=== PATIENT | female | born 1935 | race Caucasian/White ===

== ENCOUNTER → 2016-11-11 | Outpatient (REF) | payer MEDICARE ==
[~2016-11-11] MED LIST: FOLI1TAB OR; HYDROCLOROTHIAZIDE PO; VITAMIN B COMPLE1 OR; [UNRECOGNIZED DRUG - CODE] PO; calcium PO; fish oil PO; multivitamin PO; vitamin d PO
[2016-11-13 00:07] LABS: Lyme Disease IgG/IgM Antibodie <0.91 ISR (0.00-0.90); Lyme Disease IgM Ab Quantitati <0.80 index (0.00-0.79)
== END ==
LOC: M LAB REF 12:20
PROVIDERS: ATTEND Internal Medicine
DX: M15.9 Polyosteoarthritis, unspecified (principal)

== ENCOUNTER 2017-01-30 00:10 | Inpatient (IN) | payer MEDICARE ==
[~2017-01-30] VITALS: Ht 152.4 cm; Wt 57.7 kg
[2017-01-30] MEDS ORDERED: MYRB25TA PO (00:28)
[2017-01-30] MEDS: METOPROLOL 5 MG/5 ML VIAL IV SCH ×6 (01:00→02:35)
[2017-01-30 01:18] LABS: BASO % 0.5 % (0.0-1.0); EOS # 0.1 K/mm3 (0.0-0.50); EOS % 2.4 % (0.0-3.0); LARGE UNSTAINED CELL # 0.1 K/mm3 (0.0-0.4); LARGE UNSTAINED CELL % 2.3 % (0.0-4.0); LYMPH # 0.9 K/mm3 (1.5-4.5); LYMPH % 15.7 % (24.0-44.0); MEAN CORPUSCULAR HEMOGLOBIN 33.9 pg (27.0-33.0); MEAN CORPUSCULAR HGB CONC 34.6 g/dl (32.0-36.5); MONO # 0.4 K/mm3 (0.0-0.8); MONO % 7.5 % (0.0-5.0); NEUTROPHILS # 4.1 K/mm3 (1.8-7.7); NEUTROPHILS % 71.6 % (36.0-66.0); PLATELET COUNT, AUTOMATED 111 k/mm3 (150-450); RED CELL DISTRIBUTION WIDTH 11.9 % (11.5-14.5); WHITE BLOOD COUNT 5.7 K/mm3 (4.0-10.0)
[2017-01-30 01:32] LABS: ANION GAP 6 MEQ/L (8-16); BLOOD UREA NITROGEN 18 MG/DL (7-18); CALCIUM LEVEL 8.9 MG/DL (8.8-10.2); CARBON DIOXIDE LEVEL 30 MEQ/L (21-32); CHLORIDE LEVEL 103 MEQ/L (98-107); CREATININE FOR GFR 0.61 MG/DL (0.55-1.02); GLOMERULAR FILTRATION RATE > 60.0 (>32); GLUCOSE, FASTING 119 MG/DL (83-110); POTASSIUM SERUM 3.5 MEQ/L (3.5-5.1); SODIUM LEVEL 139 MEQ/L (136-145)
[2017-01-30] MEDS ORDERED: DIGOXIN INJ 0.5 MG/2 ML AMP (J1160) IV ONE ×2 (03:00→09:00)
[2017-01-30] MEDS ORDERED: FOLI1TAB4 PO (03:16)
[2017-01-30] MEDS ORDERED: CALC1TAB30 PO (03:16)
[2017-01-30] MEDS ORDERED: TYLE650T35 PO (03:16)
[2017-01-30] MEDS ORDERED: VOLT1GEL15 TD (03:16)
[2017-01-30] MEDS ORDERED: TYLE1TAB5 PO (03:16)
[2017-01-30] MEDS ORDERED: VITMTA PO (03:16)
[2017-01-30] MEDS ORDERED: VITA500T3 PO (03:16)
[2017-01-30] MEDS ORDERED: VITA100066 PO (03:16)
[2017-01-30] MEDS ORDERED: HYDR12CA PO (03:16)
[2017-01-30] MEDS ORDERED: NS 1,000 ML IV SCH (03:27)
[2017-01-30] MEDS ORDERED: ACETAMINOPHEN 650MG ER TAB (TYLENOL ARTHRITIS) PO PRN (03:30)
[2017-01-30] MEDS ORDERED: METOPROLOL TART 50 MG TAB PO STA (03:43)
[2017-01-30 04:59] VITALS: BP 131/71
[2017-01-30 05:34] LABS: BASO % 0.7 % (0.0-1.0); EOS # 0.1 K/mm3 (0.0-0.50); EOS % 1.7 % (0.0-3.0); LARGE UNSTAINED CELL # 0.1 K/mm3 (0.0-0.4); LARGE UNSTAINED CELL % 2.1 % (0.0-4.0); LYMPH # 1.4 K/mm3 (1.5-4.5); LYMPH % 19.6 % (24.0-44.0); MEAN CORPUSCULAR HEMOGLOBIN 33.6 pg (27.0-33.0); MEAN CORPUSCULAR HGB CONC 34.1 g/dl (32.0-36.5); MEAN CORPUSCULAR VOLUME 98.6 fl (80.0-96.0); MONO # 0.4 K/mm3 (0.0-0.8); MONO % 6.7 % (0.0-5.0); NEUTROPHILS # 4.3 K/mm3 (1.8-7.7); NEUTROPHILS % 69.1 % (36.0-66.0); PLATELET COUNT, AUTOMATED 117 k/mm3 (150-450); RED CELL DISTRIBUTION WIDTH 12.4 % (11.5-14.5); WHITE BLOOD COUNT 6.2 K/mm3 (4.0-10.0)
[2017-01-30 05:56] LABS: ANION GAP 8 MEQ/L (8-16); BLOOD UREA NITROGEN 14 MG/DL (7-18); CALCIUM LEVEL 8.7 MG/DL (8.8-10.2); CARBON DIOXIDE LEVEL 28 MEQ/L (21-32); CHLORIDE LEVEL 104 MEQ/L (98-107); CREATININE FOR GFR 0.48 MG/DL (0.55-1.02); GLOMERULAR FILTRATION RATE > 60.0 (>32); GLUCOSE, FASTING 109 MG/DL (83-110); POTASSIUM SERUM 3.9 MEQ/L (3.5-5.1); SODIUM LEVEL 140 MEQ/L (136-145)
[2017-01-30] MEDS ORDERED: DIGOXIN 0.25 MG TAB PO SCH (06:00)
--- NOTE | 2017-01-30 07:54 | REP ---
Portable chest, 01:18 a.m., 01/30/2017, single AP view, patient sitting: There are no comparisons. The lung smith are clear. The cardiac size is normal. The jesusita, mediastinum, and bony thorax are unremarkable. Impression: Negative portable chest. Signed by Harjeet Lane MD 01/30/2017 07:46 A
[2017-01-30 08:00] VITALS: BP 110/74
--- NOTE | 2017-01-30 08:50 | ECGEPIP ---
Stationary ECG Study 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
[2017-01-30] MEDS ORDERED: APIXABAN 2.5 MG TAB (ELIQUIS) PO SCH (09:00)
[2017-01-30] MEDS: CYANOCOBALAMIN 500 MCG TAB PO SCH (09:14)
[2017-01-30] MEDS: VITAMIN D 1,000 INTERNATIONAL UNITS TABLET PO SCH (09:14)
[2017-01-30] MEDS: FOLIC ACID 1 MG TAB PO SCH (09:14)
[2017-01-30 09:55] VITALS: BP 127/60
[2017-01-30 11:51] LABS: MAGNESIUM LEVEL 2.3 MG/DL (1.8-2.4)
[2017-01-30 12:00] VITALS: BP 132/60
--- NOTE | 2017-01-30 12:04 | IPN ---
DATE: 01/30/2017 An 81-year-old female seen at bedside, admitted for atrial fibrillation, rapid ventricular response (RVR) last evening. Dr. Mills was consulted. Was started on some digoxin. She does continue to be in rapid ventricular rate with what appears to be a ventricular rate in the 120s on telemetry. She denies any chest pain, palpitations. No nausea, vomiting and is otherwise comfortable. Temperature is 97.6, ventricular rate again is in the 120s on telemetry, respiratory rate 16, blood pressure (BP) 110/74, SpO2 97% on room air. GENERAL: The patient appears to be in no acute distress. Is alert and oriented. HEENT: Unremarkable. LUNGS: Clear. HEART: Regular rate and rhythm. ABDOMEN: Soft. EXTREMITIES: No edema. No calf tenderness. LABORATORY DATA: White count is 6.2, hemoglobin 12.6, platelets are 117,000. Sodium is 140, potassium 3.9, chloride 104, bicarbonate 28, anion gap 8, BUN is 14, creatinine 0.48 ASSESSMENT AND PLAN: There is no history and physical available for me this morning in the electronic medical record (EMR). 1. Atrial fibrillation with rapid ventricular response (RVR). The patient was started on metoprolol last evening as well as digoxin. She does continue to run a bit rapid, and she is being loaded with digoxin. I am going to go ahead and give her a one-time dose of 0.125 mg of digoxin intravenous (IV) and will plan on checking a dig level in the morning. Will continue with Eliquis 2.5 mg twice a day, which was started due to her CHADSVASC risk. 2. Vitamin D deficiency. Continue supplementation. 3. Folic acid. Continue supplementation. 4. 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 DISPOSITION: Anticipate home discharge in the next 24-48 hours but appreciate cardiology's input in the meantime. AMILCAR
--- NOTE | 2017-01-30 13:27 | HPE ---
DATE OF ADMISSION: 01/30/2017 Most of the history is obtained from the patient, who is a good historian. CHIEF COMPLAINT: Pain to the jaw radiating to the chest and the arms. HISTORY OF PRESENT ILLNESS: This is an 81-year-old female who was recently admitted with chest pain, had full workup done including a stress test as an outpatient, which was essentially normal. The patient now returns stating that at approximately 10:30 p.m. while asleep she was woken up by pain in her jaw, which later radiated down her neck and into her arms. The patient thereafter went to the emergency room. Here in the emergency room, the patient was diagnosed with rapid atrial fibrillation at a rate of 150. The patient denies any significant shortness of breath or any nausea, vomiting, or diaphoresis accompanying the episode and states that once the rate was decreased that her chest pressure improved. The patient recently underwent a stress test by her cadastral engineer, Dr. Saenz, which apparently was negative. She states she also had an echocardiogram done by him as well, and thinks that result was normal. PAST MEDICAL HISTORY: Significant for ITP. CURRENT MEDICATIONS: Include: - Myrbetriq - hydrochlorothiazide 25 mg once daily - multivitamin one tablet daily - Tylenol as needed ALLERGIES: No known drug allergies. SOCIAL HISTORY: The patient denies any tobacco, ethanol or drug use. PREVIOUS SURGERIES: Include: 1. Total hysterectomy. 2. Breast lumpectomy. 3. Eye surgery. FAMILY HISTORY: Noncontributory for any coronary artery disease or diabetes. REVIEW OF SYSTEMS: Other than the above mentioned, denies any other cardiopulmonary, digestive, endocrine, hematological, psychiatric, neurological, musculoskeletal, or dermatological disease. PHYSICAL EXAMINATION: Pulse on arrival to the emergency room was 143 with a blood pressure of 116/67. Since then, the pulse has decreased and is mostly in the 120s with a heart rate of 126 with a blood pressure of 114/56. Breathing is 16, afebrile. GENERAL APPEARANCE: Thin 81-year-old white female currently lying in bed in no apparent distress. PSYCHIATRIC EXAM: Alert and oriented times two with normal affect. SKIN EXAM: Intact, warm, no obvious rashes noted. EYE EXAM: Pupils are equally round and reactive to light without icterus. OROPHARYNGEAL EXAM: No pharyngeal erythema, dentition in good condition. NECK EXAM: No thyromegaly, trachea midline, neck is supple. LYMPHATICS EXAM: No cervical or axillary lymphadenopathy. CARDIAC EXAM: Irregular rate and rhythm. No rubs, murmurs or gallops. No jugular venous distention (JVD). No edema. RESPIRATORY EXAM: Clear to auscultation bilaterally with good effort. ABDOMINAL EXAM: Nondistended, nontender. No masses palpated. PERIPHERAL EXAM: No clubbing, cyanosis, or edema noted. LABORATORIES: The patient's white cell count is 6000, hematocrit 37, platelet count of 111 with an MCV of 98, RDW 12. Chemistry shows a sodium 139, potassium of 3.5, bicarbonate 30, BUN and creatinine of 18/0.6. Initial troponin is negative. CPK is 95. Calcium is normal. The patient's EKG is personally reviewed and shows atrial fibrillation at a rate of [address] changes. Chest x-ray is also personally reviewed and shows no signs of any effusions or infiltrates. ASSESSMENT: This is an 81-year-old female now presenting with atrial fibrillation and rapid ventricular response. The patient has received multiple doses of Lopressor intravenously (IV) in the emergency room, approximately six doses without any significant reduction in heart rate. Consultation was undertaken with Dr. Mills of cardiology, who recommended that the patient be loaded with digoxin at this time. We will admit the patient for further care. 1. Atrial fibrillation with rapid ventricular response: Will admit the patient to telemetry unit for further care at this time as an inpatient, echocardiogram was recently done and should be obtained from her cadastral engineer, thyroid-stimulating hormone (TSH) will be checked in the morning, cardiology consult will be obtained in the morning, at this time will just start the patient on Lopressor 50 mg by mouth twice daily and load her with digoxin with three more doses of 0.25 mg of digoxin by mouth over the next 24 hours, we will also hold her other antihypertensive hydrochlorothiazide in order to monitor blood pressure now on Lopressor, at this time will start the patient on Eliquis 2.5 mg twice daily as she is over 80 and less than 60 kg. The patient's platelet count at this time is 111 and should be monitored closely in light of her ITP. 2. Hypertension: At this time will hold hydrochlorothiazide as the patient is being started on Lopressor and monitor her blood pressure. 3. ITP: The patient's platelet count at this time is stable and she can tolerate anticoagulants, therefore will start her on Eliquis. For diet, patient will be on a regular diet and deep venous thrombosis (DVT) prophylaxis will be given with Xarelto.
[2017-01-30 16:00] VITALS: BP 135/63
[2017-01-30 20:32] VITALS: BP 147/64
--- NOTE | 2017-01-30 21:47 | CR ---
DATE OF CONSULTATION: 01/30/2017 INDICATION: Atrial fibrillation, chest pain. HISTORY OF PRESENT ILLNESS: Mrs. Beltran is actually my patient. She is a rather delightful 81-year-old female who presented to [facility] last night after she was woken up from sleep by pain that initiated in her jaw and then spread into her chest. After a while, the pain was intolerable and she came to the emergency room with atrial fibrillation with rapid ventricular response. She was treated by administration of metoprolol and digoxin. The pain went away relatively fast when her heart rate slowed down, but then the situation was further complicated when she converted to sinus rhythm this morning and had post conversion pause that was approximately 14-seconds long. Fortunately with resumption of sinus rhythm, she has been in sinus rhythm since and there has been no further episodes of bradycardia. Patient does report similar episode of chest pains and jaw pain in the past. She was seen in my office and we did an echocardiogram and stress test on her. The patient tells me that the tests were negative but unfortunately, I am not able to verify tonight because our computer system is being upgraded and I cannot access her records. PAST MEDICAL HISTORY: 1. Idiopathic thrombocytopenic purpura (ITP). 2. Paroxysmal atrial fibrillation. This was the first time when it was actually documented 3. Chest pain with history of evaluation as above. OUTPATIENT MEDICATIONS: Include: - Myrbetriq - hydrochlorothiazide 25 mg - multivitamin - Tylenol ALLERGIES: None. SOCIAL HISTORY: Patient lives alone. There is no history of alcohol or tobacco use. FAMILY HISTORY: Denies first-degree relatives with coronary artery disease (CAD). SURGICAL HISTORY: 1. Hysterectomy. 2. Breast lumpectomy. 3. Eye surgery. REVIEW OF SYSTEMS: She reports previous episodes of jaw and chest discomfort, as above, but there is no history of stroke. She never had any significant bleeding related to her idiopathic thrombocytopenic purpura (ITP). No nausea no vomiting. No recent diarrhea. No peripheral edema. The rest of review of systems is negative. PHYSICAL EXAMINATION: Mrs. Beltran is a very pleasant 81-year-old female who appears and behaves much younger than her calendar age. VITAL SIGNS: Blood pressure 135/63, heart rate has been in 60s and 70s since she converted to sinus rhythm, oxygen saturation has been in high 90s on room air. Weight is documented at 57.7. Her jugular venous pulse is not up. Her lungs are clear with good air movement. I do not appreciate carotid bruit. Heart examination reveals widely splitting second heart sound. There is a fairly faint murmur at the apex. I do not appreciate any gallop or rub. Abdomen is soft, nontender. No hepatosplenomegaly. Extremities are free of edema. Peripheral pulses are of good quality. Normal basic metabolic panel. Normal CBC with the exception of low platelet 117,000. Chest x-ray on admission is essentially unremarkable. Her electrocardiogram on admission reveals presence of atrial fibrillation with ventricular rate of 158 beats per minute. There is a right bundle branch block and right axis deviation and nonspecific repolarization abnormalities. The subsequent electrocardiogram reveals presence of sinus rhythm. ASSESSMENT/PLAN: Mrs. Beltran is an 81-year-old female who presents with chest pain and is found to have atrial fibrillation with rapid ventricular response. The chest discomfort subsided after her rate was better controlled. Her cardiac enzymes so far have been negative, even though only one set was obtained. I am going to obtain another one tomorrow morning. I believe that it is fair to believe that the tachycardia was behind the discomfort. What is really alarming is a very long post-conversion pause which, in my opinion, will necessitate placement of a pacemaker. I already spoke with the patient about this problem and she agrees to proceed. I contacted Dr. Payne, who agreed to perform the procedure tomorrow. In the interim, I am going to discontinue apixaban. She fortunately received only a single dose this morning. Further management will depend on her clinical course and on possible recurrences of her problem. AMILCAR
[2017-01-31] VITALS (9 sets, daily range): BP systolic 158–190; BP diastolic 60–81
[2017-01-31 05:19] LABS: DIGOXIN LEVEL 0.6 NG/ML (0.5-2.0)
[2017-01-31] MEDS ORDERED: ceFAZolin SOD 1 GM in D5W MINI-BAG PLUS 50 ML IV SCH (06:00)
[2017-01-31] MEDS ORDERED: D5W/LR 1,000 ML IV SCH (06:00)
--- NOTE | 2017-01-31 08:19 | ECGEPIP ---
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
[2017-01-31] MEDS: CYANOCOBALAMIN 500 MCG TAB PO SCH (09:00)
[2017-01-31] MEDS ORDERED: DIGOXIN 0.125 MG TAB PO SCH (09:00)
[2017-01-31] MEDS: FOLIC ACID 1 MG TAB PO SCH (09:00)
[2017-01-31] MEDS: VITAMIN D 1,000 INTERNATIONAL UNITS TABLET PO SCH (09:00)
--- NOTE | 2017-01-31 10:05 | IPN ---
DATE OF SERVICE: 01/31/2017 Mrs. Betlran did well overnight. She did not have any episodes of atrial fibrillation, and she did not have any recurrence of discomfort in her jaw or chest. There were no arrhythmias. Blood pressure 167/71, heart rate has been in 60s. She is afebrile. Saturation 95% on room air. Weight has not been documented. She is alert and oriented and appropriate. Her jugular venous pressure (JVP) is not up. Lungs are clear. Heart examination reveals regular rhythm, widely splitting second heart sound. Abdomen: Soft. No peripheral edema. Neurologically, she is completely intact. LABORATORY-[place]: CBC: Hemoglobin 12.3, hematocrit 37, platelet count 117,000. Basic metabolic panel has been normal. Her second troponin was very marginally elevated at 0.12, and TSH is 1.8. ASSESSMENT AND PLAN: Mrs. Beltran is an 81-year-old female who presented with chest and jaw discomfort in setting of atrial fibrillation (AFib) with rapid ventricular response (RVR). Her discomfort resolved after slowing down her heart rate; but, unfortunately, she had very long, approximately 14 second pause, after converting to sinus rhythm. There is a plan to place a pacemaker later today. After it is accomplished, I will start her on aspirin and beta blockers. Will continue monitoring on telemetry for at least another day and followup evolution of her cardiac enzymes. Further management depending on her clinical course.
--- NOTE | 2017-01-31 10:42 | IPN ---
DATE: 01/31/2017 This is an 81-year-old female seen at bedside, resting comfortably. Apparently, she had a 14-second pause on telemetry yesterday. Dr. Saenz has seen the patient, discussed with Dr. Payne who has agreed to do a pacemaker on her later this morning. She has had no chest pain. No palpitations. No nausea, vomiting. She is currently n.p.o. and awaiting the procedure to be performed later this morning. OBJECTIVE: Temperature 98.7, pulse 61, respiratory rate 16, blood pressure 167/71, SPO2 is 95% on room air. GENERAL: The patient appears to be in no acute distress, alert and oriented, pleasant. HEENT: Unremarkable. LUNGS: Clear. HEART: Irregularly irregular. ABDOMEN: Soft. EXTREMITIES: No edema. No calf tenderness. LABORATORY DATA: White count 6.2, hemoglobin 12.6, platelets are 117,000, sodium 140, potassium 3.9, chloride 104, bicarb 28, anion gap 8, BUN is 14, creatinine 0.48, glucose 109. Troponin 0.12 this morning with normal CK and CK-MB. ASSESSMENT/PLAN: 1. 14-second pause on telemetry concerning for increased risk of sudden cardiac . Patient is to undergo pacemaker placement today. 2. Atrial fibrillation with RVR. She is currently rate controlled. She did receive some doses of digoxin yesterday, was loaded. Her metoprolol does appear to be doing well to help control the rate as well. Her digoxin level this morning 0.6. Defer to Dr. Saenz for further assistance or any further modifications. 3. Vitamin D deficiency. Continue supplementation. 4. Folic acid. Will continue to supplement. 5. Idiopathic thrombocytopenic purpura (ITP). Longstanding, appears to be stable. 6. Deep vein thrombosis (DVT) prophylaxis. Encouraged to ambulate. Thromboembolic deterrent stockings (TEDS) and sequentials when she is in bed. DISPOSITION: She is to undergo a pacemaker placement. She will likely be here another 24-48 hours. Additionally, her CHADS-VASc risk would indicate that she needs to be anticoagulated with her history of atrial fibrillation; however, she does have thrombocytopenia which is chronic. I will discuss this further with cardiology once she has her pacemaker in place.
--- NOTE | 2017-01-31 12:05 | ECGEPIP ---
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
[2017-01-31] MEDS ORDERED: LIDOCAINE 2% INJ 100 MG/5 ML SDV (FOR ANES.) As Ordered ONE (13:12)
[2017-01-31] MEDS ORDERED: PROPOFOL 200 MG/20 ML VIAL As Ordered ONE (13:12)
[2017-01-31] MEDS ORDERED: fentaNYL 100 MCG/2 ML INJECTION (J3010) As Ordered ONE ×2 (13:13→16:17)
[2017-01-31] MEDS ORDERED: MIDAZOLAM INJ 2 MG/2 ML VIAL (J2250) As Ordered ONE (13:13)
[2017-01-31] MEDS ORDERED: LIDOCAINE 1% SDV INJ 30 ML VIAL As Ordered ONE (13:24)
[2017-01-31] MEDS ORDERED: ISOVUE-300 61% 50ML VIAL (Q9967) As Ordered ONE (13:24)
[2017-01-31] MEDS ORDERED: ceFAZolin 1GM INJ (J0690) As Ordered ONE (14:18)
[2017-01-31] MEDS ORDERED: MUPIROCIN 2% OINT 22 GM TUBE As Ordered ONE (15:32)
[2017-01-31] MEDS ORDERED: ONDANSETRON 4MG/2ML VIAL (J2405) As Ordered ONE (16:18)
[2017-01-31] MEDS: fentaNYL 100 MCG/2 ML INJECTION (J3010) IV PRN ×2 (16:20→16:27)
[2017-01-31] MEDS ORDERED: ONDANSETRON 4MG/2ML VIAL (J2405) IV PRN (16:30)
[2017-01-31] MEDS ORDERED: [UNRECOGNIZED DRUG - REMARK] XX SCH (16:30)
[2017-01-31] MEDS ORDERED: LR 1,000 ML IV SCH (16:30)
[2017-01-31] MEDS: ACETAMINOPHEN TAB 650MG DOSE (2X325MG) PO PRN (20:37)
[2017-01-31] MEDS: ASCORBIC ACID 250 MG TAB PO SCH (21:00)
[2017-02-01] VITALS (7 sets, daily range): BP systolic 129–182; BP diastolic 63–110
--- NOTE | 2017-02-01 07:05 | RO ---
DATE OF PROCEDURE: 01/31/2017 PREOPERATIVE DIAGNOSIS: Sick sinus syndrome/tachycardia/bradycardia syndrome. POSTOPERATIVE DIAGNOSIS: Sick sinus syndrome/tachycardia/bradycardia syndrome. FINDINGS: Sick sinus syndrome/tachycardia/bradycardia syndrome. PROCEDURE PERFORMED: Implantation of a Medtronic dual chamber pacemaker system. SURGEON: Ron Payne MD ELEMENTARY SCHOOL PRINCIPAL: None. ANESTHESIA: Lidocaine 1% local/monitored anesthetic care. SPECIMENS: None. ESTIMATED BLOOD LOSS: Less than 20 mL. No blood products were replaced. DRAINS: No drains. COMPLICATIONS: No complications. DESCRIPTION OF PROCEDURE: Patient was prepped and draped over the left pectoral region. 3M [place] film was applied. Lidocaine 1% was used for local anesthetic. A left subclavian venogram was performed in real time to help localize the left subclavian vein, extrathoracic portion, using a mixture consisting of a ratio of 3:1 contrast to normal saline. A total volume of that solution 50 mL was used for a single left subclavian venogram. The left subclavian vein extrathoracic portion was entered via percutaneous technique using a micropuncture needle under fluoroscopic guidance in real time with the concurrent left subclavian venogram. This was then Guidewire exchanged for the Guidewire that came with the #7-[place] sheath. Next, incision approximately 2-1/2 inches in length was made through the skin 1 cm below the skin entry site of the Guidewire using a PlasmaBlade. The PlasmaBlade was used to dissect through the fatty layer and the fibrous Ace's fascia. The pacemaker pocket was then formed using blunt dissection, using two fingers to separate the prepectoral fascia from the fibrous Ace's fascia in a caudal direction using blunt dissection using two fingers. Next, the Guidewire was pulled through the skin into the incision site. Next, another micropuncture needle was used to obtain a separate venous access, entering the level of the pectoral muscle in the pocket and using the first Guidewire as a fluoroscopic marker. It was then Guidewire exchanged for the Guidewire that came with the other #7-[place] sheath. Next, a #7-[place] sheath with introducer was placed over the more lateral of the Guidewire and was used for access of the right ventricle lead. The right ventricle lead was placed under fluoroscopic guidance into the right ventricle apex position where it was secured with a total of eight turns. This position was found to be electrically and anatomically satisfactory. The #7-[place] sheath was broken apart and removed, and the ventricle lead was secured to the pectoral muscle using the supplied tie down sleeve using two individual sutures consisting of #0 Ethibond to secure it to the pectoral muscle. Next, another #7-[place] sheath was placed over the more medial of the guidewires and advanced into the left subclavian vein and was used for vein access for the right atrial lead. The right atrial lead was placed into the right atrial appendage position with the help of a preformed stylette. The first position which was screwed into did not have an acceptable capture threshold (1.9 volts at 0.5 milliseconds), although sensing and impedance were good. The atrial lead helix was then retracted and another position was tried in the left atrial appendage, which was successful with good pacing capture and sensing thresholds and lead impedance. The #7-[place] sheath was then broken apart and the atrial lead was secured to the pectoral muscle using two individual sutures consisting of #0 Ethibond. Next, #0 Ethibond suture was tied to the floor of the pacemaker pocket and was used for the tie down of the pacemaker pulsed generator. The free terminal pins of the pacemaker leads were then plugged into their respective ports into the header of the pacemaker pulse generator and each one was secured by tightening the set screws with the hex screwdriver. The excess lead material was then coiled under the pacemaker pulse generator and placed along with the pacemaker pulse generator into the pocket with the excess lead material below and pulse generator on top. The deep layer was closed using individual sutures consisting of #2-0 Vicryl. A few additional #2-0 Vicryl sutures were used to help approximate the more superficial layer. The skin was closed using will. The incision was dressed with Bactroban followed by Telfa and then a Bioclusive dressing and then a pressure dressing. The patient tolerated the procedure well without any immediate complications. cc: MD Fidelina Joseph, WILLIAN
--- NOTE | 2017-02-01 07:06 | REP ---
Chest x-ray: Limited single view. History: Sick sinus syndrome. Pacemaker placement. 3 minutes 49 seconds of fluoroscopy time is reported. Findings: A single fluoroscopically obtained last image hold spot radiograph of the chest documents lead placement. Signed by Ronn Rose MD 02/01/2017 08:46 A
--- NOTE | 2017-02-01 07:07 | REP ---
Portable chest x-ray: Single view. History: Postop pacemaker. Comparison chest x-ray January 30, 2017. Findings: A dual lead pacemaker is seen with right heart leads via the left side. There is no evidence of pneumothorax or hydrothorax. Cardiomediastinal silhouette is unchanged from the prior study. Pulmonary vasculature is not increased. Impression: Pacemaker in place. No complication identified. Signed by Ronn Rose MD 02/01/2017 08:46 A
[2017-02-01 08:13] LABS: MEAN CORPUSCULAR HEMOGLOBIN 33.9 pg (27.0-33.0); MEAN CORPUSCULAR HGB CONC 34.3 g/dl (32.0-36.5); MEAN CORPUSCULAR VOLUME 98.7 fl (80.0-96.0); RED CELL DISTRIBUTION WIDTH 12.2 % (11.5-14.5); WHITE BLOOD COUNT 8.3 K/mm3 (4.0-10.0)
--- NOTE | 2017-02-01 08:14 | IPN ---
DATE OF SERVICE: 02/01/2017 An 81-year-old female seen at bedside, resting comfortably. Had her pacemaker placed yesterday. Seems to be tolerating well her oral intake. No headache, no lightheaded, no dizziness, no chest pain. OBJECTIVE: Temperature is 98, pulse 74, respiratory rate is 18, blood pressure (BP) is 160/70, SPO2 is 99% on room air. General: The patient appears to be in no acute distress. She is alert, pleasant. HEENT: Unremarkable. Lungs: Clear. Heart: Regular rate and rhythm. Abdomen: Soft. Extremities: No edema. No calf tenderness. Laboratories are pending at this time. ASSESSMENT AND PLAN: 1. Atrial fibrillation with 14-second pause. She now has a pacer in place. She is currently rate controlled. Will continue current medicine. Appreciate cardiology's assistance. 2. Vitamin D deficiency. Continue supplementation. 3. Folic acid supplementation. 4. Idiopathic thrombocytopenic purpura (ITP), longstanding. Appears to be stable. 5. Hypertension: she's having some blood pressures running in the 160-180's systolic. Will start Coreg 3.125mg daily with hold parameters. 6. Deep venous thrombosis (DVT) prophylaxis. Encouraged to ambulate, as well as thromboembolic deterrents (TEDs) and sequentials when she is in bed. DISPOSITION: She did well. She does have a significant CHADs-VAsc score indicating need for anticoagulation and I see that cardiology has already ordered her to start eliquis starting this evening. Anticipate home discharge in next 24hrs. MTDD
[2017-02-01] MEDS: ASCORBIC ACID 250 MG TAB PO SCH ×2 (08:18→20:15)
[2017-02-01] MEDS: CYANOCOBALAMIN 500 MCG TAB PO SCH (08:18)
[2017-02-01] MEDS: VITAMIN D 1,000 INTERNATIONAL UNITS TABLET PO SCH (08:18)
[2017-02-01] MEDS: FOLIC ACID 1 MG TAB PO SCH (08:18)
[2017-02-01 08:32] LABS: ANION GAP 7 MEQ/L (8-16); BLOOD UREA NITROGEN 9 MG/DL (7-18); CALCIUM LEVEL 9.1 MG/DL (8.8-10.2); CARBON DIOXIDE LEVEL 26 MEQ/L (21-32); CHLORIDE LEVEL 106 MEQ/L (98-107); CREATININE FOR GFR 0.49 MG/DL (0.55-1.02); GLOMERULAR FILTRATION RATE > 60.0 (>32); GLUCOSE, FASTING 110 MG/DL (83-110); POTASSIUM SERUM 3.3 MEQ/L (3.5-5.1); SODIUM LEVEL 139 MEQ/L (136-145)
[2017-02-01] MEDS ORDERED: CARVedilol 3.125 MG TAB PO SCH (09:00)
--- NOTE | 2017-02-01 11:35 | IPN ---
DATE: 02/01/2017 Mrs. Beltran had a relatively good night. She has some soreness at the pacemaker insertion site, but otherwise has no other complaints. She did not have any recurrence of atrial fibrillation. There was no jaw or chest pain. Vital signs: Blood pressure this morning is very high. The maximum was 182/110. She is afebrile. Saturation has been 99% on room air and heart rate has been mostly in 70s. Her fluid balance yesterday was documented as 2.6 liters negative, which probably is not quite accurate. No weight is documented this morning. She is alert and oriented, appropriate, in good spirits. Jugular venous pressure is not up. Lungs are clear to auscultation with good air movement bilaterally. Heart: Exam reveals unchanged exam with widely splitting second heart sounds and no gallop, rub or obvious murmur. Abdomen is soft, nontender. No peripheral edema. Neurologically she is intact. LABORATORY: Basic metabolic panel is normal but for potassium 3.3. CBC reveals hemoglobin 13.4, hematocrit 39, platelet count [id number]. ASSESSMENT/PLAN: Mrs. Beltran is an 81-year-old female who presented to [facility] with prolonged episode of jaw and chest discomfort and was found to be in atrial fibrillation with rapid ventricular response (RVR). The discomfort subsided after heart rate slowed down, but unfortunately she had long post conversion pause after she converted to sinus rhythm. Consequently, she received a pacemaker yesterday. Today she feels better. We will start her on apixaban tonight, which will be more than 24 hours after the procedure has been completed. I will give her a fairly substantial dose of Coreg. It seems that she has no awareness of the atrial fibrillation, but it does manifest itself as angina and consequently we need to make sure that she is on good dose of beta-alex to prevent substantial tachycardia. Interestingly, she had a nuclear stress test in our office approximately a month ago that revealed no evidence for ischemia. During this hospitalization, she had trivial troponin elevation. I do not believe I will change the management though will continue beta blockers, anticoagulation and I will follow the patient clinically. AMILCAR
[2017-02-01] MEDS ORDERED: CARVedilol 3.125 MG TAB PO ONE (12:00)
--- NOTE | 2017-02-01 12:44 | ECGEPIP ---
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
--- NOTE | 2017-02-01 12:47 | ECGEPIP ---
Stationary ECG Study [facility] Test Date: 2017-02-01 Pat Name: KIM ROCHE Department: Room: [place] [address] Gender: F Yard Hand: ALPHONSO: 1935 Requested By: Miladys Saenz Order Number: [id number] Reading MD: Miladys Saenz Measurements Intervals [place] Rate: 62 P: 47 [place]: 167 QRS: -67 QRSD: 152 T: 9 QT: 452 QTc: 461 Interpretive Statements SINUS RHYTHM POSSIBLE LEFT ATRIAL ENLARGEMENT RIGHT BUNDLE BRANCH BLOCK LEFT ANTERIOR FASCICULAR BLOCK NO CHANGE SINCE 01/31/17 Electronically Signed On 02-01-2017 12:47:09 EDT by Miladys Saenz
[2017-02-01] MEDS ORDERED: POTASSIUM CHLORIDE 10 MEQ SR TABLET PO ONE (13:15)
[2017-02-01] MEDS: ACETAMINOPHEN TAB 650MG DOSE (2X325MG) PO PRN (16:14)
[2017-02-01] MEDS ORDERED: APIXABAN 2.5 MG TAB (ELIQUIS) PO SCH (17:00)
[2017-02-01] MEDS: CARVedilol 6.25 MG TAB PO SCH (17:39)
[2017-02-01] MEDS: APIXABAN 5 MG TAB (ELIQUIS) PO SCH ×2 (20:15→20:18)
[2017-02-02 00:02] VITALS: BP 151/67
[2017-02-02 04:00] VITALS: BP_SYST 151; BP_SYST 165; BP_DIAS 67; BP_DIAS 72
[2017-02-02] MEDS: CARVedilol 6.25 MG TAB PO SCH ×2 (05:16)
--- NOTE | 2017-02-02 07:33 | REP ---
Chest x-ray: Two views. History: Post pacemaker insertion. Findings: A bipolar pacemaker is seen in the right heart via the left side. There is no visible pneumothorax or hydrothorax. Aorta is tortuous as before. Heart size is unchanged from comparison radiographs January 31, 2017. The lung smith are clear. Impression: Status post pacemaker insertion. No complication seen. Signed by Ronn Rose MD 02/02/2017 08:38 A
[2017-02-02 08:00] VITALS: BP 141/64
[2017-02-02] MEDS ORDERED: CARVedilol 6.25 MG TAB PO ONE (08:00)
--- NOTE | 2017-02-02 08:09 | IPN ---
DATE: 02/02/2017 Mrs. Beltran has been feeling fine. She is a little sore all over the place but has no specific complaints. There was no recurrence of atrial fibrillation and there is no paroxysmal nocturnal dyspnea, orthopnea. She denies any chest pain other than soreness at the pacemaker insertion site. Blood pressure this morning was 165/72, heart rate has been in 60s and 70s. She is afebrile. Saturation 97% on room air. Jugular venous pressure is not up. Lungs are clear to auscultation with good air movement. Heart exam reveals regular rhythm with widely splitting second heart sound and faint murmur, unchanged since admission. Abdomen is soft, nontender. There is no edema. Neurologically, she is intact. LABORATORY [place]: There was no blood work order for this morning. ASSESSMENT AND PLAN: Mrs. Beltran is an 81-year-old female who presented with jaw and chest discomfort and was found to be in atrial fibrillation with rapid ventricular rate. Her symptoms resolved when her heart rate slowed down but then she had a 14-second conversion pause when she went from atrial fibrillation to sinus rhythm that led to placement of pacemaker the day before yesterday. Currently, I believe that she will be able to go home provided she can ambulate without difficulty. Because her blood pressure is still relatively high, I am going to increase the dose of Coreg to full 25 mg twice a day. Also, we will discharge her on full anticoagulation. She will have a wound check at Dr. Payne's office in about a week and I will see her in the office in about a month. She was instructed to call our office if she has any problems in the interim.
[2017-02-02] MEDS ORDERED: ELIQ5TAB PO (09:53)
[2017-02-02] MEDS ORDERED: CARV12.5 PO (09:53)
[2017-02-02] MEDS: VITAMIN D 1,000 INTERNATIONAL UNITS TABLET PO SCH (10:34)
[2017-02-02] MEDS: FOLIC ACID 1 MG TAB PO SCH (10:34)
[2017-02-02] MEDS: ACETAMINOPHEN TAB 650MG DOSE (2X325MG) PO PRN (10:35)
[2017-02-02] MEDS: CYANOCOBALAMIN 500 MCG TAB PO SCH (10:35)
[2017-02-02] MEDS: APIXABAN 5 MG TAB (ELIQUIS) PO SCH (10:35)
[2017-02-02 10:37] VITALS: BP 141/64
[2017-02-02] MEDS: ASCORBIC ACID 250 MG TAB PO SCH (11:50)
[2017-02-02 12:00] VITALS: BP 145/75
[2017-02-02] MEDS ORDERED: CARVedilol 12.5 MG TAB PO SCH (21:00)
--- NOTE | 2017-02-03 08:59 | IPN ---
DATE OF ADMISSION: 01/30/2017 DATE OF DISCHARGE: 02/02/2017 PRIMARY CARE PHYSICIAN: Wild Romero Jr., MD ATTENDING PHYSICIAN: Alex Veloz DO CONSULTATION: Miladys Saenz MD PRINCIPAL PROCEDURE: Insertion of [employer] dual-chamber pacemaker, Dr. Payne, 01/31/2017, for sick sinus syndrome and bradycardia. HISTORY: Paola Beltran is an 81-year-old admitted with new-onset atrial fibrillation with rapid ventricular response. Details in history and physical from admission. HOSPITAL COURSE: The patient admitted to an intensive care unit (ICU) bed. She had atrial fibrillation that responded to metoprolol and digoxin. She converted to sinus rhythm. Had a 14-second pause upon converting that led to a pacemaker insertion. She tolerated this well. She has been seen by cardiology on a daily basis. Dr. Saenz saw her today and felt that she could be stable for discharge. He adjusted her blood pressure medicines and recommended she have her wound rechecked at Dr. Payne's office in a week, to be seen in his office in a month, and that she be anticoagulated with Eliquis in the interim. The patient is agreeable to discharge. She feels well enough to be home. Her blood pressure (BP) is 141/64, pulse 65, respiratory rate 20, 97% oxygen (O2) saturation. Lungs are clear. Heart: Regular rate and rhythm. No murmur. Abdomen: Soft, nontender, no masses. No peripheral edema. SIGNIFICANT LABORATORIES: I do not see an echocardiogram having been done. Yesterday, white count was 8.3, hemoglobin 13.4, platelets 98. Platelets on admission were 111. Yesterday, sodium 139, potassium 3.3, BUN 9, creatinine 0.49, glucose 110. Digoxin level 0.6. DISPOSITION: She is discharged home, improved, in stable condition. She will followup with Dr. Romero in a week, followup with Dr. Payne in a week, followup with Dr. Saenz in a month. Activity as tolerated. [id number] diet. ADDENDUM: 02/02/2017, sl Activity as tolerated. No added salt diet. MEDICATIONS: - Eliquis 5 mg twice a day - carvedilol 25 mg twice a day - She will continue Tylenol 650 mg every 8 hours as needed - calcium - vitamin D 1000 units daily - B12 500 mcg daily - folic acid 1 mg daily - Myrbetriq 25 mg daily - multivitamin daily - Tylenol as needed Hydrochlorothiazide and Voltaren gel have been discontinued.
== END 2017-02-02 13:48 | disposition home or self-care (01) | DRG 243 ==
LOC: M ED 00:10 → M ED INP 03:27 → M ICU 04:25
PROVIDERS: ADMIT Internal Medicine; ATTEND Family Medicine
PROC: 02H63JZ Insertion of Pacemaker Lead into Right Atrium, Percutaneous Approach (ICD-10-PCS; 2017-01-31)
PROC: 02HK3JZ Insertion of Pacemaker Lead into Right Ventricle, Percutaneous Approach (ICD-10-PCS; 2017-01-31)
PROC: 0JH606Z Insertion of Pacemaker, Dual Chamber into Chest Subcutaneous Tissue and Fascia, Open Approach (ICD-10-PCS; principal; 2017-01-31 13:00)
DX: I49.5 Sick sinus syndrome (principal); D69.3 Immune thrombocytopenic purpura; E55.9 Vitamin D deficiency, unspecified; I48.0 Paroxysmal atrial fibrillation; I10 Essential (primary) hypertension; Z79.899 Other long term (current) drug therapy

== ENCOUNTER 2017-02-10 20:58 | Emergency (ER) | payer MEDICARE ==
[~2017-02-10] VITALS: Ht 152.4 cm; Wt 58.6 kg
[~2017-02-10 20:58] MED LIST changes: +CALC1TAB30 PO; +CARV12.5 PO; +ELIQ5TAB PO; +FOLI1TAB4 PO; +HYDR12CA PO; +MYRB25TA PO; +TYLE1TAB5 PO; +TYLE650T35 PO; +VITA100066 PO; +VITA500T3 PO; +VITMTA PO; +VOLT1GEL15 TD
[2017-02-10] MEDS ORDERED: XARE20TA PO (21:05)
[2017-02-10 22:06] LABS: INR 1.5
[2017-02-10 22:12] LABS: BASO % 0.6 % (0.0-1.0); EOS # 0.2 K/mm3 (0.0-0.50); EOS % 3.3 % (0.0-3.0); LARGE UNSTAINED CELL # 0.1 K/mm3 (0.0-0.4); LARGE UNSTAINED CELL % 1.8 % (0.0-4.0); LYMPH # 1.5 K/mm3 (1.5-4.5); MEAN CORPUSCULAR HEMOGLOBIN 33.7 pg (27.0-33.0); MEAN CORPUSCULAR HGB CONC 34.1 g/dl (32.0-36.5); MEAN CORPUSCULAR VOLUME 98.9 fl (80.0-96.0); MONO # 0.5 K/mm3 (0.0-0.8); MONO % 6.8 % (0.0-5.0); NEUTROPHILS # 4.8 K/mm3 (1.8-7.7); NEUTROPHILS % 68.4 % (36.0-66.0); PLATELET COUNT, AUTOMATED 92 k/mm3 (150-450); RED CELL DISTRIBUTION WIDTH 12.5 % (11.5-14.5)
[2017-02-10 22:25] LABS: ANION GAP 6 MEQ/L (8-16); BLOOD UREA NITROGEN 17 MG/DL (7-18); CALCIUM LEVEL 9.2 MG/DL (8.8-10.2); CARBON DIOXIDE LEVEL 26 MEQ/L (21-32); CHLORIDE LEVEL 110 MEQ/L (98-107); CREATININE FOR GFR 0.55 MG/DL (0.55-1.02); GLOMERULAR FILTRATION RATE > 60.0 (>32); GLUCOSE, FASTING 97 MG/DL (83-110); MAGNESIUM LEVEL 2.1 MG/DL (1.8-2.4); POTASSIUM SERUM 4.3 MEQ/L (3.5-5.1); SODIUM LEVEL 142 MEQ/L (136-145)
--- NOTE | 2017-02-10 22:40 | REP ---
Clinical: Chest pain . Comparison: 02/01/2017 . Technique: PA and lateral. Findings: The mediastinum and cardiac silhouette are stable and within normal limits; pacemaker noted. The lung smith demonstrate stable chronic interstitial changes without acute consolidation, effusion, or pneumothorax. The skeletal structures are intact and normal. Impression: 1. No acute cardiopulmonary process. Signed by Braxton Jackson MD 02/10/2017 10:31 P
[2017-02-10 23:54] VITALS: BP 133/65
[2017-02-11] VITALS: BP 133/65
[2017-02-11] MEDS ORDERED: CARVedilol 12.5 MG TAB PO ONE
--- NOTE | 2017-02-12 09:05 | ECGEPIP ---
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
== END 2017-02-11 00:11 | disposition home or self-care (01) ==
LOC: M ED 20:58
DX: R00.2 Palpitations (principal); I48.91 Unspecified atrial fibrillation; D69.3 Immune thrombocytopenic purpura; Z79.899 Other long term (current) drug therapy; Z79.01 Long term (current) use of anticoagulants; Z95.0 Presence of cardiac pacemaker

== ENCOUNTER → 2017-05-22 | Outpatient (REF) | payer MEDICARE ==
[~2017-05-22] MED LIST changes: +XARE20TA PO
== END ==
LOC: M LAB REF 13:15
PROVIDERS: ATTEND Internal Medicine
DX: M05.79 Rheumatoid arthritis with rheumatoid factor of multiple sites without organ or systems involvement (principal)

== ENCOUNTER 2018-01-23 16:13 | Emergency (ER) | payer MEDICARE ==
[2018-01-23 16:48] LABS: BASO # 0.1 10^3/uL (0.0-0.2); BASO % 0.5 % (0.0-1.0); EOS # 0.3 10^3/uL (0.0-0.50); EOS % 2.3 % (0.0-3.0); HEMATOCRIT 40.4 % (36.0-47.0); HEMOGLOBIN 13.6 g/dl (12.0-15.5); IMMATURE GRANULOCYTE % 0.6 % (0-3.0); LYMPH # 1.6 10^3/uL (1.5-4.5); LYMPH % 14.7 % (24.0-44.0); MEAN CORPUSCULAR HEMOGLOBIN 33.2 pg (27.0-33.0); MEAN CORPUSCULAR HGB CONC 33.7 g/dl (32.0-36.5); MEAN CORPUSCULAR VOLUME 98.5 fl (80.0-96.0); MONO # 1.1 10^3/uL (0.0-0.8); MONO % 9.6 % (0.0-5.0); NEUTROPHILS # 8.1 10^3/uL (1.8-7.7); NEUTROPHILS % 72.3 % (36.0-66.0); PLATELET COUNT, AUTOMATED 116 10^3/uL (150-450); RED CELL DISTRIBUTION WIDTH 12.3 % (11.5-14.5); WHITE BLOOD COUNT 11.2 10^3/uL (4.0-10.0)
[2018-01-23 16:58] LABS: INR 1.26
[2018-01-23] MEDS: NS 500 ML IV ×2 (17:05→18:56)
[2018-01-23 17:08] LABS: ERYTHROCYTE SEDIMENTATION RATE 30 mm/hr (0-30)
[2018-01-23 17:16] LABS: ALBUMIN 3.5 GM/DL (3.2-5.2); ALBUMIN/GLOBULIN RATIO 1.03 (1.00-1.93); ALKALINE PHOSPHATASE 95 U/L (45-117); ALT/SGPT 29 U/L (12-78); ANION GAP 7 MEQ/L (8-16); AST/SGOT 24 U/L (7-37); BILIRUBIN,DIRECT 0.2 MG/DL (0.0-0.2); BILIRUBIN,TOTAL 0.5 MG/DL (0.2-1.0); BLOOD UREA NITROGEN 18 MG/DL (7-18); CALCIUM LEVEL 9.2 MG/DL (8.8-10.2); CARBON DIOXIDE LEVEL 30 MEQ/L (21-32); CHLORIDE LEVEL 99 MEQ/L (98-107); CPK CREATINE PHOSPHOKINASE 107 U/L (26-192); CREATININE FOR GFR 0.77 MG/DL (0.55-1.30); GLOMERULAR FILTRATION RATE > 60.0 (>32); GLUCOSE, FASTING 106 MG/DL (70-100); LIPASE 149 U/L (73-393); SODIUM LEVEL 136 MEQ/L (136-145); TOTAL PROTEIN 6.9 GM/DL (6.4-8.2); TROPONIN I < 0.02 NG/ML (< 0.10)
[2018-01-23 17:22] LABS: CK-MB VALUE MASS 3.1 NG/ML (<3.6); MB/CK RELATIVE INDEX 2.89 (< OR =4); NT-PRO BNP 735 PG/ML (<450)
[2018-01-23] MEDS ORDERED: ISOVUE-370 76% 100ML VIAL (Q9967) As Ordered (19:02)
[2018-01-23] MEDS: ACETAMINOPHEN TAB 650MG DOSE (2X325MG) PO (20:36)
[2018-01-23 22:58] LABS: CK-MB VALUE MASS 2.2 NG/ML (<3.6); CPK CREATINE PHOSPHOKINASE 82 U/L (26-192); MB/CK RELATIVE INDEX 2.68 (< OR =4); TROPONIN I < 0.02 NG/ML (< 0.10)
== END 2018-01-23 23:32 | disposition home or self-care (01) ==
LOC: M ED 16:13
DX: R07.89 Other chest pain (principal); R51 Headache; R53.83 Other fatigue; I48.91 Unspecified atrial fibrillation; I10 Essential (primary) hypertension; D69.3 Immune thrombocytopenic purpura; Z98.890 Other specified postprocedural states; Z79.899 Other long term (current) drug therapy; Z79.01 Long term (current) use of anticoagulants
CPT/HCPCS: Q9967

== ENCOUNTER → 2018-05-31 | Outpatient (REF) | payer MEDICARE ==
[~2018-05-31] MED LIST changes: -FOLI1TAB4 PO; +FOLI1TAB5 PO; +HYDR25TAB
== END ==
LOC: M LAB REF 12:10
PROVIDERS: ATTEND Internal Medicine
DX: M05.79 Rheumatoid arthritis with rheumatoid factor of multiple sites without organ or systems involvement (principal)

== ENCOUNTER → 2018-11-19 | Outpatient (REF) | payer MEDICARE ==
[~2018-11-19] MED LIST changes: +FOLI1TAB11 PO; -FOLI1TAB5 PO
== END ==
LOC: M LAB REF 16:58
PROVIDERS: ATTEND Internal Medicine
DX: D69.6 Thrombocytopenia, unspecified (principal)

== ENCOUNTER → 2018-12-07 | Outpatient (REF) | payer MEDICARE ==
[2018-12-10 00:11] LABS: Lyme Disease IgG/IgM Antibodie <0.91 ISR (0.00-0.90); Lyme Disease IgM Ab Quantitati <0.80 index (0.00-0.79)
== END ==
LOC: M LAB REF 16:52
PROVIDERS: ATTEND Nurse Practitioner Adult Health
DX: Z11.59 Encounter for screening for other viral diseases (principal)

== ENCOUNTER → 2019-12-15 | Outpatient (REF) | payer MEDICARE ==
[~2019-12-15] MED LIST changes: +CYAN500T8 PO; -VITA500T3 PO
[2019-12-15 19:06] LABS: PERCENT SATURATION 22.2 % (13.2-45.0)
== END ==
LOC: M LAB REF 17:53
PROVIDERS: ATTEND Internal Medicine
DX: D50.9 Iron deficiency anemia, unspecified (principal)

== ENCOUNTER → 2021-05-21 | Outpatient (REF) | payer MEDICARE ==
[~2021-05-21] MED LIST changes: +ACET650T61 PO; +CYAN500T14 PO; -CYAN500T8 PO; +HYDR-3490; -HYDR25TAB; -TYLE650T35 PO
[2021-05-21 17:57] LABS: FOLATE 14.7 NG/ML
== END ==
LOC: M LAB REF 16:54
PROVIDERS: ATTEND Internal Medicine
DX: R41.81 Age-related cognitive decline (principal)

== ENCOUNTER → 2022-05-20 | Outpatient (REF) | payer MEDICARE | LOC: M SFHCDERM 16:30 | PROVIDERS: ATTEND Nurse Practitioner Family | DX: C44.320 Squamous cell carcinoma of skin of unspecified parts of face (principal) ==

== ENCOUNTER → 2022-05-23 | Outpatient (REF) | payer MEDICARE | LOC: M LAB REF 16:11 | PROVIDERS: ATTEND Internal Medicine | DX: M05.79 Rheumatoid arthritis with rheumatoid factor of multiple sites without organ or systems involvement (principal) ==

== ENCOUNTER → 2022-07-16 | Outpatient (REF) | payer MEDICARE | LOC: M SFHCDERM 17:34 | PROVIDERS: ATTEND Dermatology | DX: L03.114 Cellulitis of left upper limb (principal) ==

== ENCOUNTER → 2022-08-22 | Outpatient (REF) | payer MEDICARE | LOC: M SFHCDERM 16:14 | PROVIDERS: ATTEND Nurse Practitioner Family | DX: C44.42 Squamous cell carcinoma of skin of scalp and neck (principal) ==

== ENCOUNTER → 2022-09-16 | Outpatient (REF) | payer MEDICARE ==
[~2022-09-16] MED LIST changes: +CEPH500C PO; +METH2.5T48 PO; +METO200T28 PO
== END ==
LOC: M SFHCDERM 17:58
PROVIDERS: ATTEND Dermatology
DX: T14.90XD Injury, unspecified, subsequent encounter (principal)

== ENCOUNTER → 2022-09-16 | Outpatient (CLI) | payer MEDICARE | LOC: M ONCR 13:04 | PROVIDERS: ATTEND General Practice | DX: C44.42 Squamous cell carcinoma of skin of scalp and neck (principal); I48.0 Paroxysmal atrial fibrillation; M06.9 Rheumatoid arthritis, unspecified; T14.90XD Injury, unspecified, subsequent encounter; Z79.899 Other long term (current) drug therapy; Z95.0 Presence of cardiac pacemaker | CPT/HCPCS: 87070; 87205; G0463 ==

== ENCOUNTER 2022-09-30 13:46 | Outpatient (RCR) | payer MEDICARE | END 2022-10-12 | LOC: M ONCR 13:46 | PROVIDERS: ATTEND General Practice | DX: C44.42 Squamous cell carcinoma of skin of scalp and neck (principal) ==

== ENCOUNTER 2022-11-07 14:45 | Outpatient (RCR) | payer MEDICARE ==
[2022-11-14] MEDS ORDERED: OXYC-517 PO (15:43)
== END 2022-11-12 ==
LOC: M ONCR 14:45
PROVIDERS: ATTEND General Practice
DX: C44.42 Squamous cell carcinoma of skin of scalp and neck (principal)

== ENCOUNTER → 2022-11-14 | Outpatient (CLI) | payer MEDICARE ==
[~2022-11-14] MED LIST changes: +OXYC-517 PO
== END ==
LOC: M ONCR 14:32
PROVIDERS: ATTEND General Practice
DX: L59.8 Other specified disorders of the skin and subcutaneous tissue related to radiation (principal)

== ENCOUNTER → 2022-12-26 | Outpatient (CLI) | payer MEDICARE | LOC: M ONCR 13:59 | PROVIDERS: ATTEND General Practice | DX: L59.8 Other specified disorders of the skin and subcutaneous tissue related to radiation (principal); Z92.3 Personal history of irradiation ==

== ENCOUNTER → 2023-04-24 | Outpatient (REF) | payer MEDICARE | LOC: M SFHCDERM 14:25 | PROVIDERS: ATTEND Dermatology | DX: D18.01 Hemangioma of skin and subcutaneous tissue (principal) ==

== ENCOUNTER → 2023-05-15 | Outpatient (CLI) | payer MEDICARE | LOC: M ONCR 11:25 | PROVIDERS: ATTEND General Practice | DX: C44.02 Squamous cell carcinoma of skin of lip (principal); L57.0 Actinic keratosis; Z71.2 Person consulting for explanation of examination or test findings; Z79.01 Long term (current) use of anticoagulants; Z79.631 Long term (current) use of antimetabolite agent; Z79.899 Other long term (current) drug therapy; Z92.3 Personal history of irradiation; Z98.890 Other specified postprocedural states ==

== ENCOUNTER 2023-06-12 13:24 | Outpatient (RCR) | payer MEDICARE | END 2023-06-14 | LOC: M ONCR 13:24 | PROVIDERS: ATTEND General Practice | DX: Z51.0 Encounter for antineoplastic radiation therapy (principal); C44.02 Squamous cell carcinoma of skin of lip ==

== ENCOUNTER 2023-07-14 13:23 | Outpatient (RCR) | payer MEDICARE | END 2023-07-15 | LOC: M ONCR 13:23 | PROVIDERS: ATTEND General Practice | DX: Z51.0 Encounter for antineoplastic radiation therapy (principal); C44.02 Squamous cell carcinoma of skin of lip; C44.42 Squamous cell carcinoma of skin of scalp and neck ==

== ENCOUNTER → 2023-12-18 | Outpatient (REF) | payer MEDICARE ==
[~2023-12-18] MED LIST changes: +METO200T15 PO; -METO200T28 PO
== END ==
LOC: M SFHCWOUN 07:54
PROVIDERS: ATTEND Surgery
DX: D04.4 Carcinoma in situ of skin of scalp and neck (principal); C44.42 Squamous cell carcinoma of skin of scalp and neck

== ENCOUNTER → 2024-04-07 | Outpatient (REF) | payer MEDICARE | LOC: M SFHCDERM 17:51 | PROVIDERS: ATTEND Dermatology | DX: C44.329 Squamous cell carcinoma of skin of other parts of face (principal); D04.39 Carcinoma in situ of skin of other parts of face ==

== ENCOUNTER → 2024-04-19 | Outpatient (CLI) | payer MEDICARE | LOC: M ONCR 11:45 | PROVIDERS: ATTEND General Practice | DX: C44.42 Squamous cell carcinoma of skin of scalp and neck (principal); Z98.890 Other specified postprocedural states; Z92.3 Personal history of irradiation; Z79.631 Long term (current) use of antimetabolite agent; Z79.01 Long term (current) use of anticoagulants; Z79.899 Other long term (current) drug therapy ==

== ENCOUNTER 2024-04-28 10:24 | Outpatient (RCR) | payer MEDICARE | END 2024-05-14 | LOC: M ONCR 10:24 | PROVIDERS: ATTEND General Practice | DX: Z51.0 Encounter for antineoplastic radiation therapy (principal); C44.02 Squamous cell carcinoma of skin of lip ==

== ENCOUNTER 2024-05-30 09:57 | Outpatient (RCR) | payer MEDICARE ==
[~2024-05-30 09:57] MED LIST changes: +TRIA1CR80 TOP
== END 2024-06-14 ==
LOC: M ONCR 09:57
PROVIDERS: ATTEND General Practice
DX: Z51.0 Encounter for antineoplastic radiation therapy (principal); C44.02 Squamous cell carcinoma of skin of lip

== ENCOUNTER → 2024-06-30 | Outpatient (CLI) | payer MEDICARE | LOC: M ONCR 15:34 | PROVIDERS: ATTEND General Practice | DX: C44.42 Squamous cell carcinoma of skin of scalp and neck (principal); Z92.3 Personal history of irradiation; Z98.890 Other specified postprocedural states ==

== ENCOUNTER → 2024-08-09 | Outpatient (REF) | payer MEDICARE | LOC: M SFHCDERM 17:29 | PROVIDERS: ATTEND Dermatology | DX: C44.621 Squamous cell carcinoma of skin of unspecified upper limb, including shoulder (principal); C44.629 Squamous cell carcinoma of skin of left upper limb, including shoulder ==

== ENCOUNTER 2024-08-27 18:24 | Inpatient (IN) | payer MEDICARE ==
[~2024-08-27] VITALS: Ht 152.4 cm; Wt 67.0 kg
[2024-08-27 19:05] LABS: BASO % 0.2 % (0.0-1.0); EOS % 0.2 % (0.0-3.0); HEMATOCRIT 34.2 % (36.0-47.0); HEMOGLOBIN 11.4 g/dl (12.0-15.5); LYMPH # 0.7 10^3/uL (1.5-5.0); LYMPH % 5.5 % (24.0-44.0); MEAN CORPUSCULAR HEMOGLOBIN 32.9 pg (27.0-33.0); MEAN CORPUSCULAR HGB CONC 33.3 g/dl (32.0-36.5); MEAN CORPUSCULAR VOLUME 98.6 fl (80.0-96.0); MONO # 0.9 10^3/uL (0.0-0.8); MONO % 6.7 % (2.0-8.0); NEUTROPHILS # 11.2 10^3/uL (1.5-8.5); NEUTROPHILS % 86.7 % (36.0-66.0); PLATELET COUNT, AUTOMATED 145 10^3/uL (150-450); RED BLOOD COUNT 3.47 10^6/uL (4.00-5.40); WHITE BLOOD COUNT 12.9 10^3/uL (4.0-10.0)
[2024-08-27] MEDS: IBUPROFEN 600MG TAB PO ONE (19:10)
[2024-08-27] MEDS: cefTRIAXone SOD 2 GM in DEXTROSE 5% (D5W) ADV/MINI-BAG 50 ML IV ONE (19:15)
[2024-08-27 19:17] LABS: INR 3.21; PARTIAL THROMBOPLASTIN TIME 37.5 SECONDS (24.8-34.2); PROTHROMBIN TIME 32.6 SECONDS (12.5-14.5)
[2024-08-27 19:20] LABS: KETONE, URINE AUTO RFX NEGATIVE (NEGATIVE); LEUKOCYTE ESTERASE UR AUTO RFX NEGATIVE (NEGATIVE); NITRITE, URINE AUTO RFX NEGATIVE (NEGATIVE); RBC, URINE AUTO RFX 29 /HPF (0-3); SQUAM EPITHELIAL CELL UR AURFX 0 /HPF (0-6); WBC, URINE AUTO RFX 1 /HPF (0-3)
[2024-08-27 19:27] LABS: ALBUMIN 3.1 G/DL (3.2-5.2); BILIRUBIN,DIRECT 0.2 MG/DL (<0.4); BILIRUBIN,TOTAL 0.6 MG/DL (0.3-1.2); CALCIUM LEVEL 8.8 MG/DL (8.3-10.6); CREATININE FOR GFR 0.97 MG/DL (0.55-1.30); GLOMERULAR FILTRATION RATE 57.6 (>32); POTASSIUM SERUM 3.3 MMOL/L (3.5-5.1); TOTAL PROTEIN 6.5 G/DL (5.7-8.2)
[2024-08-27] MEDS: POTASSIUM CHLORIDE 10MEQ SR TABLET PO ONE (19:35)
[2024-08-27] MEDS: NS (Normal Saline) 0.9% 1,000 ML IV SCH (19:45)
[2024-08-27] MEDS ORDERED: MAALOX 30 ML SUSP *UDC PO PRN (22:15)
[2024-08-27] MEDS ORDERED: NITR0.4S14 SL (22:38)
[2024-08-27] MEDS ORDERED: TORS20TA2 PO (22:38)
[2024-08-27] MEDS ORDERED: MULT-90 PO (22:38)
[2024-08-27] MEDS ORDERED: MYRB50TA PO (22:38)
[2024-08-27] MEDS ORDERED: HOME MED LIST COMPLETE! XX SCH (22:40)
[2024-08-27 22:44] LABS: ERYTHROCYTE SEDIMENTATION RATE 81 mm/hr (0-30)
[2024-08-27 22:47] LABS: MAGNESIUM LEVEL 1.8 MG/DL (1.8-2.4)
[2024-08-27 22:48] LABS: C REACTIVE PROTEIN QUANTITATIV 4.13 MG/DL (<1.0)
[2024-08-27] MEDS: PANTOPRAZOLE 40MG TAB (PROTONIX) PO ONE (23:02)
[2024-08-27 23:04] LABS: PROCALCITONIN 0.31 ng/ml
[2024-08-28 00:08] VITALS: BP 130/57; TEMP 97.1; O2SAT 98
[2024-08-28] MEDS: NS (Normal Saline) 0.9% 1,000 ML IV ONE (00:53)
[2024-08-28 04:00] VITALS: BP 127/56; TEMP 97.2; O2SAT 98
[2024-08-28] MEDS: VANCOMYCIN HCL 1,250 MG, VIAL MATE ADAPTER 1 EACH in NS 250 ML IV ONE (06:21)
[2024-08-28 06:44] LABS: BASO % 0.2 % (0.0-1.0); EOS # 0.1 10^3/uL (0.0-0.5); EOS % 0.5 % (0.0-3.0); HEMATOCRIT 29.2 % (36.0-47.0); HEMOGLOBIN 9.8 g/dl (12.0-15.5); LYMPH # 0.7 10^3/uL (1.5-5.0); LYMPH % 3.9 % (24.0-44.0); MEAN CORPUSCULAR HEMOGLOBIN 33.6 pg (27.0-33.0); MEAN CORPUSCULAR HGB CONC 33.6 g/dl (32.0-36.5); MONO # 0.8 10^3/uL (0.0-0.8); MONO % 4.6 % (2.0-8.0); NEUTROPHILS # 15.1 10^3/uL (1.5-8.5); NEUTROPHILS % 89.5 % (36.0-66.0); PLATELET COUNT, AUTOMATED 105 10^3/uL (150-450); RED BLOOD COUNT 2.92 10^6/uL (4.00-5.40); WHITE BLOOD COUNT 16.8 10^3/uL (4.0-10.0)
[2024-08-28 07:12] LABS: CALCIUM LEVEL 8.2 MG/DL (8.3-10.6); GLOMERULAR FILTRATION RATE 55.6 (>32); POTASSIUM SERUM 3.8 MMOL/L (3.5-5.1)
[2024-08-28 07:39] VITALS: BP 104/50; TEMP 97.7; O2SAT 96
[2024-08-28] MEDS: DOCUSATE SODIUM 100MG CAPSULE PO SCH (08:57)
[2024-08-28] MEDS: POTASSIUM CHLORIDE 10MEQ SR TABLET PO SCH (08:57)
[2024-08-28] MEDS: RIVAROXABAN 20MG TAB (XARELTO) PO SCH (08:57)
[2024-08-28] MEDS: FOLIC ACID 1MG TAB PO SCH (08:57)
[2024-08-28 16:06] VITALS: BP 123/53; TEMP 98.7; O2SAT 98
[2024-08-28 19:33] VITALS: BP 138/62; TEMP 98.4; O2SAT 96
[2024-08-28] MEDS: cefTRIAXone SOD 2 GM in DEXTROSE 5% (D5W) ADV/MINI-BAG 50 ML IV SCH (19:56)
[2024-08-28] MEDS: ACETAMINOPHEN 325 MG TAB PO PRN (19:58)
[2024-08-28 20:00] VITALS: BP 138/62; PULSE 70; O2SAT 96
[2024-08-28] MEDS: VANCOMYCIN HCL 1,000 MG, VIAL MATE ADAPTER 1 EACH in NS 250 ML IV SCH (23:00)
[2024-08-29 04:00] VITALS: BP 138/62; PULSE 70; TEMP 98.4; O2SAT 96
[2024-08-29 04:33] VITALS: BP 120/68; TEMP 97.6; O2SAT 98
[2024-08-29 05:27] LABS: BASO % 0.3 % (0.0-1.0); EOS # 0.3 10^3/uL (0.0-0.5); EOS % 2.6 % (0.0-3.0); HEMATOCRIT 29.9 % (36.0-47.0); HEMOGLOBIN 9.9 g/dl (12.0-15.5); LYMPH # 1.2 10^3/uL (1.5-5.0); LYMPH % 9.6 % (24.0-44.0); MEAN CORPUSCULAR HGB CONC 33.1 g/dl (32.0-36.5); MEAN CORPUSCULAR VOLUME 102.7 fl (80.0-96.0); MONO # 0.8 10^3/uL (0.0-0.8); MONO % 6.3 % (2.0-8.0); NEUTROPHILS % 80.4 % (36.0-66.0); RED BLOOD COUNT 2.91 10^6/uL (4.00-5.40); WHITE BLOOD COUNT 12.5 10^3/uL (4.0-10.0)
[2024-08-29 05:40] LABS: CALCIUM LEVEL 8.1 MG/DL (8.3-10.6); CREATININE FOR GFR 0.96 MG/DL (0.55-1.30); GLOMERULAR FILTRATION RATE 58.3 (>32)
[2024-08-29 05:55] LABS: PLATELET COUNT, AUTOMATED 91 10^3/uL (150-450)
[2024-08-29 07:24] VITALS: BP 147/68; TEMP 97.8; O2SAT 97
[2024-08-29 08:24] LABS: C REACTIVE PROTEIN QUANTITATIV 13.41 MG/DL (<1.0)
[2024-08-29] MEDS ORDERED: ceFAZolin SOD 2 GM in DEXTROSE 5% (D5W) ADV/MINI-BAG 50 ML IV SCH (15:10)
[2024-08-29] MEDS: ceFAZolin SODIUM 2 GM in DEXTROSE 5% (D5W) ADV/MINI-BAG 50 ML IV SCH (15:31)
[2024-08-29 15:53] VITALS: BP 122/93; TEMP 98.1; O2SAT 97
[2024-08-29 20:20] VITALS: BP 131/84; TEMP 98.9; O2SAT 96
[2024-08-29 23:22] VITALS: BP 135/70; TEMP 98.1; O2SAT 97
[2024-08-30 03:53] VITALS: BP 141/66; TEMP 98.3; O2SAT 96
[2024-08-30 05:37] LABS: BASO % 0.2 % (0.0-1.0); EOS # 0.3 10^3/uL (0.0-0.5); EOS % 2.8 % (0.0-3.0); HEMOGLOBIN 9.6 g/dl (12.0-15.5); LYMPH # 1.7 10^3/uL (1.5-5.0); LYMPH % 17.9 % (24.0-44.0); MEAN CORPUSCULAR HEMOGLOBIN 33.3 pg (27.0-33.0); MEAN CORPUSCULAR HGB CONC 33.1 g/dl (32.0-36.5); MEAN CORPUSCULAR VOLUME 100.7 fl (80.0-96.0); MONO # 0.8 10^3/uL (0.0-0.8); MONO % 8.5 % (2.0-8.0); NEUTROPHILS # 6.6 10^3/uL (1.5-8.5); NEUTROPHILS % 69.9 % (36.0-66.0); PLATELET COUNT, AUTOMATED 103 10^3/uL (150-450); RED BLOOD COUNT 2.88 10^6/uL (4.00-5.40); WHITE BLOOD COUNT 9.4 10^3/uL (4.0-10.0)
[2024-08-30 06:01] LABS: BLOOD UREA NITROGEN 20 MG/DL (9-23); C REACTIVE PROTEIN QUANTITATIV 9.41 MG/DL (<1.0); CALCIUM LEVEL 8.6 MG/DL (8.3-10.6); CARBON DIOXIDE LEVEL 23 MMOL/L (20-31); CHLORIDE LEVEL 110 MMOL/L (98-107); CREATININE FOR GFR 0.89 MG/DL (0.55-1.30); GLOMERULAR FILTRATION RATE > 60.0 (>32); GLUCOSE, FASTING 109 MG/DL (74-106); POTASSIUM SERUM 4.6 MMOL/L (3.5-5.1); SODIUM LEVEL 142 MMOL/L (136-145)
[2024-08-30 07:40] VITALS: BP 142/62; TEMP 98.5; O2SAT 97
[2024-08-30] MEDS: METOPROLOL SUCC (TopROL XL) 100MG *XL* TAB PO SCH (12:46)
[2024-08-30] MEDS: TORSEMIDE 20 MG TAB PO SCH (12:46)
[2024-08-30 15:54] VITALS: BP 144/71; TEMP 97.4; O2SAT 96
[2024-08-30 17:23] VITALS: BP 179/84; TEMP 97; O2SAT 100
[2024-08-30 20:00] VITALS: BP 175/82; TEMP 97.2; O2SAT 97
[2024-08-31 04:00] VITALS: BP 170/82; TEMP 97.3; O2SAT 95
[2024-08-31 05:41] LABS: BASO % 0.5 % (0.0-1.0); EOS # 0.3 10^3/uL (0.0-0.5); EOS % 3.5 % (0.0-3.0); HEMATOCRIT 30.8 % (36.0-47.0); HEMOGLOBIN 10.3 g/dl (12.0-15.5); LYMPH # 1.4 10^3/uL (1.5-5.0); LYMPH % 18.6 % (24.0-44.0); MEAN CORPUSCULAR HEMOGLOBIN 33.1 pg (27.0-33.0); MEAN CORPUSCULAR HGB CONC 33.4 g/dl (32.0-36.5); MONO # 0.9 10^3/uL (0.0-0.8); MONO % 11.8 % (2.0-8.0); NEUTROPHILS % 65.1 % (36.0-66.0); PLATELET COUNT, AUTOMATED 123 10^3/uL (150-450); RED BLOOD COUNT 3.11 10^6/uL (4.00-5.40); WHITE BLOOD COUNT 7.6 10^3/uL (4.0-10.0)
[2024-08-31 06:09] LABS: BLOOD UREA NITROGEN 15 MG/DL (9-23); CALCIUM LEVEL 8.7 MG/DL (8.3-10.6); CARBON DIOXIDE LEVEL 27 MMOL/L (20-31); CHLORIDE LEVEL 102 MMOL/L (98-107); CREATININE FOR GFR 0.84 MG/DL (0.55-1.30); GLOMERULAR FILTRATION RATE > 60.0 (>32); GLUCOSE, FASTING 94 MG/DL (74-106); POTASSIUM SERUM 3.6 MMOL/L (3.5-5.1); SODIUM LEVEL 142 MMOL/L (136-145)
[2024-08-31 09:00] VITALS: BP 159/77; TEMP 97.2; O2SAT 96
[2024-08-31] MEDS ORDERED: SODIUM CHLORIDE 0.9% INJ 10 ML SYR IV PRN (10:15)
[2024-08-31 11:06] LABS: ALBUMIN 2.5 G/DL (3.2-5.2); ALKALINE PHOSPHATASE 110 U/L (35-104); ALT/SGPT 12 U/L (7.0-40); AST/SGOT 21 U/L (<34); BILIRUBIN,DIRECT 0.2 MG/DL (<0.4); BILIRUBIN,TOTAL 0.4 MG/DL (0.3-1.2); CPK CREATINE PHOSPHOKINASE 35 U/L (34-145); TOTAL PROTEIN 5.7 G/DL (5.7-8.2)
[2024-08-31] MEDS: SODIUM CHLORIDE 0.9% INJ 10 ML SYR IV SCH (11:34)
[2024-08-31 12:00] VITALS: BP 146/78; TEMP 97.2; O2SAT 98
[2024-08-31] MEDS: DAPTOmycin 650 MG in NS 50 ML IV SCH (13:59)
[2024-08-31 19:39] VITALS: BP 128/69; TEMP 97.5; O2SAT 99
[2024-08-31] MEDS: QUEtiapine FUMARATE 12.5 MG HALF-TAB PO SCH (20:28)
[2024-09-01 04:48] VITALS: BP 143/80; TEMP 97.9; O2SAT 100
[2024-09-02 03:42] VITALS: BP 131/72; TEMP 97.2; O2SAT 93
[2024-09-02 04:00] VITALS: O2SAT 93
[2024-09-03 04:00] VITALS: BP 157/71; TEMP 97.7; O2SAT 94
[2024-09-03] MEDS: cefTRIAXone SOD 2 GM in DEXTROSE 5% (D5W) ADV/MINI-BAG 50 ML IV SCH (14:00)
[2024-09-04 04:00] VITALS: BP 129/59; TEMP 97.2; O2SAT 98
[2024-09-04 09:45] VITALS: BP 124/58
[2024-09-05 03:24] VITALS: BP 156/86; TEMP 97.5; O2SAT 96
[2024-09-05] MEDS ORDERED: CEFTINJ2 IV (09:08)
== END 2024-09-05 15:00 | disposition home health service (06) | DRG 871 ==
LOC: EDBD 18:24 → M ED 18:24 → M ED INP 22:15 → M PCU 23:52 → M MSPAV 08-30 17:04
PROVIDERS: ADMIT Internal Medicine; ATTEND Student in an Organized Health Care Education/Training Program
PROC: B246ZZZ Ultrasonography of Right and Left Heart (ICD-10-PCS; principal; 2024-08-29)
DX: A41.01 Sepsis due to Methicillin susceptible Staphylococcus aureus (principal); G93.41 Metabolic encephalopathy; M86.8X8 Other osteomyelitis, other site; I48.91 Unspecified atrial fibrillation; R00.0 Tachycardia, unspecified; M06.9 Rheumatoid arthritis, unspecified; N32.81 Overactive bladder; R60.0 Localized edema; R53.1 Weakness; F03.90 Unspecified dementia, unspecified severity, without behavioral disturbance, psychotic disturbance, mood disturbance, and anxiety; I10 Essential (primary) hypertension; R41.0 Disorientation, unspecified; Z66 Do not resuscitate; Z95.0 Presence of cardiac pacemaker; Z85.828 Personal history of other malignant neoplasm of skin; Z79.899 Other long term (current) drug therapy; Z85.3 Personal history of malignant neoplasm of breast; Z79.01 Long term (current) use of anticoagulants

== ENCOUNTER → 2024-09-12 | Outpatient (REF) | payer MEDICARE ==
[~2024-09-12] MED LIST changes: +CEFTINJ2 IV; +MULT-90 PO; +MYRB50TA PO; +NITR0.4S14 SL; +POTA1TAB23 PO; +TORS20TA2 PO
[2024-09-12 13:46] LABS: HEMATOCRIT 31.6 % (36.0-47.0); HEMOGLOBIN 10.2 g/dl (12.0-15.5); MEAN CORPUSCULAR HEMOGLOBIN 32.9 pg (27.0-33.0); MEAN CORPUSCULAR HGB CONC 32.3 g/dl (32.0-36.5); MEAN CORPUSCULAR VOLUME 101.9 fl (80.0-96.0); PLATELET COUNT, AUTOMATED 152 10^3/uL (150-450); WHITE BLOOD COUNT 7.5 10^3/uL (4.0-10.0)
[2024-09-12 14:09] LABS: ERYTHROCYTE SEDIMENTATION RATE 55 mm/hr (0-30)
[2024-09-12 14:12] LABS: C REACTIVE PROTEIN QUANTITATIV 1.62 MG/DL (<1.0); CPK CREATINE PHOSPHOKINASE 31 U/L (34-145)
[2024-09-12 14:13] LABS: ALBUMIN 2.7 G/DL (3.2-5.2); ALKALINE PHOSPHATASE 98 U/L (35-104); ALT/SGPT 13 U/L (7.0-40); AST/SGOT 17 U/L (<34); BILIRUBIN,TOTAL 0.4 MG/DL (0.3-1.2); BLOOD UREA NITROGEN 22 MG/DL (9-23); CALCIUM LEVEL 8.8 MG/DL (8.3-10.6); CARBON DIOXIDE LEVEL 30 MMOL/L (20-31); CHLORIDE LEVEL 104 MMOL/L (98-107); CREATININE FOR GFR 0.85 MG/DL (0.55-1.30); GLOMERULAR FILTRATION RATE > 60.0 (>32); GLUCOSE, FASTING 76 MG/DL (74-106); POTASSIUM SERUM 3.8 MMOL/L (3.5-5.1); SODIUM LEVEL 142 MMOL/L (136-145)
== END ==
LOC: M LAB REF 12:40
PROVIDERS: ATTEND Student in an Organized Health Care Education/Training Program
DX: Z00.00 Encounter for general adult medical examination without abnormal findings (principal); B95.61 Methicillin susceptible Staphylococcus aureus infection as the cause of diseases classified elsewhere

== ENCOUNTER 2024-09-15 06:07 | Day surgery (SDC) | payer MEDICARE ==
[~2024-09-15] VITALS: Ht 157.5 cm; Wt 66.2 kg
[2024-09-15] MEDS ORDERED: propofoL 200 MG/20 ML VIAL As Ordered ONE (06:52)
[2024-09-15] MEDS ORDERED: ETOMIDATE INJ 20MG/10ML VIAL As Ordered ONE (06:52)
[2024-09-15] MEDS ORDERED: LIDOCAINE 2% 100MG/5ML SDV (FOR ANES.) As Ordered ONE (06:54)
[2024-09-15] MEDS ORDERED: LR 1,000 ML IV SCH ×2 (07:10→08:10)
[2024-09-15] MEDS ORDERED: SODIUM CHLORIDE 0.9% INJ 10 ML SYR IV PRN (07:25)
[2024-09-15] MEDS: CETACAINE SPRAY 5GM As Ordered ONE (07:51)
[2024-09-15] MEDS: LIDOCAINE VISCOUS 2% SOLN 15ML UDC As Ordered ONE (07:51)
[2024-09-15] MEDS ORDERED: fentaNYL 100 MCG/2 ML INJECTION IV PRN (08:10)
[2024-09-15] MEDS ORDERED: ONDANSETRON 4MG 2ML VIAL IV PRN (08:10)
[2024-09-15] MEDS ORDERED: oxyCODONE 5MG TAB PO PRN (08:10)
[2024-09-15] MEDS ORDERED: HYDROMORPHONE HCL 0.5 MG/ 0.5 ML SYRINGE IV PRN (08:10)
[2024-09-15 09:12] VITALS: BP 145/69; TEMP 96.9; O2SAT 95
[2024-09-15] MEDS: SODIUM CHLORIDE 0.9% INJ 10 ML SYR IV SCH (09:35)
== END 2024-09-15 09:42 | disposition home or self-care (01) ==
LOC: M SDC 06:07
PROVIDERS: ATTEND Internal Medicine Cardiovascular Disease
DX: R78.81 Bacteremia (principal); A49.01 Methicillin susceptible Staphylococcus aureus infection, unspecified site; Z95.0 Presence of cardiac pacemaker; I48.91 Unspecified atrial fibrillation; R07.9 Chest pain, unspecified; Z86.73 Personal history of transient ischemic attack (TIA), and cerebral infarction without residual deficits; Z79.899 Other long term (current) drug therapy
CPT/HCPCS: 93312; 93320; 93325; J1642

== ENCOUNTER → 2024-09-20 | Outpatient (REF) | payer MEDICARE ==
[2024-09-20 14:05] LABS: BASO # 0.1 10^3/uL (0.0-0.2); BASO % 0.9 % (0.0-1.0); EOS # 0.4 10^3/uL (0.0-0.5); EOS % 5.4 % (0.0-3.0); HEMATOCRIT 35.7 % (36.0-47.0); HEMOGLOBIN 11.6 g/dl (12.0-15.5); LYMPH # 2.1 10^3/uL (1.5-5.0); LYMPH % 30.4 % (24.0-44.0); MEAN CORPUSCULAR HEMOGLOBIN 33.7 pg (27.0-33.0); MEAN CORPUSCULAR HGB CONC 32.5 g/dl (32.0-36.5); MEAN CORPUSCULAR VOLUME 103.8 fl (80.0-96.0); MONO # 0.6 10^3/uL (0.0-0.8); MONO % 9.4 % (2.0-8.0); NEUTROPHILS # 3.6 10^3/uL (1.5-8.5); NEUTROPHILS % 53.2 % (36.0-66.0); PLATELET COUNT, AUTOMATED 142 10^3/uL (150-450); RED BLOOD COUNT 3.44 10^6/uL (4.00-5.40); WHITE BLOOD COUNT 6.8 10^3/uL (4.0-10.0)
[2024-09-20 14:26] LABS: C REACTIVE PROTEIN QUANTITATIV 0.94 MG/DL (<1.0)
[2024-09-20 14:27] LABS: ALKALINE PHOSPHATASE 108 U/L (35-104); ALT/SGPT 17 U/L (7.0-40); AST/SGOT 21 U/L (<34); BILIRUBIN,TOTAL 0.5 MG/DL (0.3-1.2); BLOOD UREA NITROGEN 26 MG/DL (9-23); CALCIUM LEVEL 9.1 MG/DL (8.3-10.6); CARBON DIOXIDE LEVEL 28 MMOL/L (20-31); CHLORIDE LEVEL 102 MMOL/L (98-107); CPK CREATINE PHOSPHOKINASE 37 U/L (34-145); GLOMERULAR FILTRATION RATE > 60.0 (>32); GLUCOSE, FASTING 92 MG/DL (74-106); POTASSIUM SERUM 3.9 MMOL/L (3.5-5.1); SODIUM LEVEL 138 MMOL/L (136-145); TOTAL PROTEIN 6.4 G/DL (5.7-8.2)
== END ==
LOC: M LAB REF 13:00
PROVIDERS: ATTEND Internal Medicine Infectious Disease
DX: R78.81 Bacteremia (principal)

== ENCOUNTER → 2024-10-20 | Outpatient (CLI) | payer MEDICARE | LOC: M ONCR 15:22 | PROVIDERS: ATTEND General Practice | DX: C44.42 Squamous cell carcinoma of skin of scalp and neck (principal); Z92.3 Personal history of irradiation ==

== ENCOUNTER → 2024-10-26 | Outpatient (REF) | payer MEDICARE | LOC: M LAB REF 14:20 | PROVIDERS: ATTEND Internal Medicine | DX: I48.0 Paroxysmal atrial fibrillation (principal); M05.79 Rheumatoid arthritis with rheumatoid factor of multiple sites without organ or systems involvement ==

== ENCOUNTER → 2024-12-21 | Outpatient (REF) | payer MEDICARE | LOC: EEVIPCON 11:50 → M SFHCDERM 11:50 | PROVIDERS: ATTEND Dermatology | DX: C44.320 Squamous cell carcinoma of skin of unspecified parts of face (principal); H10.31 Unspecified acute conjunctivitis, right eye ==

== ENCOUNTER → 2025-01-30 | Outpatient (REF) | payer MEDICARE ==
[~2025-01-30] MED LIST changes: +HYDR12.510 PO; -HYDR12CA PO
== END ==
LOC: M LAB REF 13:45
PROVIDERS: ATTEND Internal Medicine
DX: M86.8X9 Other osteomyelitis, unspecified sites (principal)

== ENCOUNTER → 2025-02-08 | Outpatient (REF) | payer MEDICARE | LOC: M SFHCDERM 10:00 | PROVIDERS: ATTEND Dermatology | DX: C44.42 Squamous cell carcinoma of skin of scalp and neck (principal) ==

== ENCOUNTER → 2025-03-01 | Outpatient (REF) | payer MEDICARE | LOC: M SFHCDERM 07:30 | PROVIDERS: ATTEND Dermatology | DX: D48.5 Neoplasm of uncertain behavior of skin (principal) ==

== ENCOUNTER → 2025-05-01 | Outpatient (REF) | payer MEDICARE | LOC: M LAB REF 14:27 | PROVIDERS: ATTEND Internal Medicine | DX: M05.79 Rheumatoid arthritis with rheumatoid factor of multiple sites without organ or systems involvement (principal); S01.80XS Unspecified open wound of other part of head, sequela; Y92.9 Unspecified place or not applicable; Y93.9 Activity, unspecified ==